=== PATIENT | female | born 1935 | race African-American/Black ===

== ENCOUNTER 2016-07-01 20:33 | Inpatient (IN) | payer MEDICARE, OTHER ==
[~2016-07-01] VITALS: Ht 162.6 cm; Wt 73.5 kg
[2016-07-01 20:49] LABS: BASOPHILS # (AUTO) 0.1 /CMM (0.0-0.2); BASOPHILS % (AUTO) 0.9 % (0.0-2.0); DIFF TOTAL % 100 %; EOSINOPHILS # (AUTO) 0.1 /CMM (0.0-0.7); EOSINOPHILS % (AUTO) 1.5 % (0.0-6.0); HEMATOCRIT 37 % (33-45); HEMOGLOBIN 12.2 g/dL (11.5-14.8); LYMPHOCYTES # (AUTO) 2.5 /CMM (0.8-4.8); LYMPHOCYTES % (AUTO) 40.5 % (20.0-44.0); MEAN CORPUSCULAR HEMOGLOBIN 30 PG (26.0-33.0); MEAN CORPUSCULAR HGB CONC 33 g/dl (31.0-36.0); MEAN CORPUSCULAR VOLUME 91 fL (82-100); MONOCYTES # (AUTO) 0.5 /CMM (0.1-1.30); MONOCYTES % (AUTO) 8.1 % (2.0-12.0); NEUTROPHILS # (AUTO) 2.9 /CMM (1.8-8.9); PLATELET COUNT (AUTO) 192 /CMM (150-450); RED BLOOD CELL COUNT(AUTO) 4.06 MIL/uL (4.0-5.2); WHITE BLOOD COUNT (AUTO) 6.1 K/uL (4.3-11.0)
[2016-07-01] MEDS ORDERED: HYDR12.5 PO (20:54)
[2016-07-01] MEDS ORDERED: METO25TA6 PO (20:54)
[2016-07-01] MEDS ORDERED: ALPR0.5T8 PO (20:54)
[2016-07-01] MEDS ORDERED: ASPI81TA44 PO (20:54)
[2016-07-01] MEDS ORDERED: HYDR-3652 PO (20:54)
[2016-07-01] MEDS ORDERED: ATOR80TA PO (20:54)
[2016-07-01] MEDS ORDERED: MECL25TA65 PO (20:54)
[2016-07-01] MEDS ORDERED: MAGN296S PO (20:54)
[2016-07-01 20:59] LABS: CALCIUM, SERUM 9.2 mg/dL (8.5-10.1); POTASSIUM 3.8 mmol/L (3.5-5.1)
[2016-07-01 21:03] LABS: INR 1.05 (0.87-1.13)
[2016-07-01 21:07] LABS: TROPONIN I 0.094 ng/mL (0.00-0.056)
[2016-07-01] MEDS ORDERED: ASPIRIN 325 MG TABLET ONE (21:12)
[2016-07-01] MEDS ORDERED: hydrALAZINE HCL IV 20 MG VIAL ONE (21:18)
[2016-07-01] MEDS ORDERED: hydrALAZINE HCL IV 20 MG VIAL IV ONE ×2 (21:30)
[2016-07-01] MEDS ORDERED: ASPIRIN 325 MG TABLET PO ONE (21:30)
[2016-07-01 22:30] VITALS: BP 169/89
[2016-07-01] MEDS ORDERED: ENOXAPARIN SODIUM 40 MG/0.4 ML DISP.SYRIN SQ SCH (22:30)
[2016-07-01] MEDS ORDERED: MAG HYDROX/AL HYDROX/SIMETH 30 ML UDC PO PRN (22:30)
[2016-07-01] MEDS ORDERED: ZOLPIDEM TARTRATE 5 MG TABLET PO PRN (22:30)
[2016-07-01] MEDS ORDERED: Z GUARD REMEDY 2 OZ OINT TP PRN (22:30)
[2016-07-01] MEDS ORDERED: ACETAMINOPHEN 325 MG TABLET PO PRN (22:30)
[2016-07-01] MEDS ORDERED: HYDROCODONE/APAP 5/325MG 1 EACH TABLET PO PRN (22:30)
[2016-07-01] MEDS ORDERED: ONDANSETRON HCL/PF 4 MG/2 ML VIAL IVP PRN (22:30)
[2016-07-01] MEDS ORDERED: MAGNESIUM HYDROXIDE 30 ML UDC PO PRN (22:30)
[2016-07-01 23:40] LABS: KETONES,URINE NEGATIVE (NEGATIVE); LEUKOCYTE ESTERASE ,URINE 2+ (NEGATIVE)
[2016-07-01 23:42] LABS: ADD UA MICROSCOPIC YES
[2016-07-01 23:46] LABS: ADD URINE CULTURE YES; RBC,URINE 0-2 /HPF (0-2)
[2016-07-01 23:47] LABS: MUCUS,URINE Rare /LPF (None Seen)
[2016-07-02] VITALS (9 sets, daily range): BP systolic 118–153; BP diastolic 70–79
[2016-07-02] MEDS ORDERED: ENOXAPARIN SODIUM 40 MG/0.4 ML DISP.SYRIN SQ ONE (00:47)
[2016-07-02 06:36] LABS: BASOPHILS % (AUTO) 0.4 % (0.0-2.0); DIFF TOTAL % 100 %; EOSINOPHILS # (AUTO) 0.1 /CMM (0.0-0.7); EOSINOPHILS % (AUTO) 1.6 % (0.0-6.0); HEMATOCRIT 39 % (33-45); HEMOGLOBIN 12.5 g/dL (11.5-14.8); LYMPHOCYTES # (AUTO) 1.9 /CMM (0.8-4.8); LYMPHOCYTES % (AUTO) 33.7 % (20.0-44.0); MEAN CORPUSCULAR HEMOGLOBIN 30 PG (26.0-33.0); MEAN CORPUSCULAR HGB CONC 32 g/dl (31.0-36.0); MEAN CORPUSCULAR VOLUME 93 fL (82-100); MONOCYTES # (AUTO) 0.5 /CMM (0.1-1.30); MONOCYTES % (AUTO) 9.4 % (2.0-12.0); NEUTROPHILS # (AUTO) 3.2 /CMM (1.8-8.9); NEUTROPHILS % (AUTO) 54.9 % (43.0-81.0); PLATELET COUNT (AUTO) 189 /CMM (150-450); RED BLOOD CELL COUNT(AUTO) 4.23 MIL/uL (4.0-5.2); WHITE BLOOD COUNT (AUTO) 5.8 K/uL (4.3-11.0)
[2016-07-02 06:57] LABS: CALCIUM, SERUM 9.5 mg/dL (8.5-10.1); CREATININE 0.8 mg/dL (0.6-1.3); PHOSPHORUS 3.4 mg/dL (2.5-4.9); POTASSIUM 3.7 mmol/L (3.5-5.1)
[2016-07-02] MEDS: ASPIRIN EC 81 MG TABLET.DR PO SCH (08:59)
[2016-07-02] MEDS: PANTOPRAZOLE 40 MG TABLET.DR PO SCH (08:59)
[2016-07-02] MEDS: METOPROLOL TARTRATE 25 MG TABLET PO SCH (09:00)
[2016-07-02] MEDS: hydrALAZINE HCL 50 MG TABLET PO SCH ×3 (09:55→17:38)
[2016-07-02] MEDS: ATORVASTATIN 40 MG TABLET PO SCH (09:55)
[2016-07-02] MEDS: ENOXAPARIN SODIUM 40 MG/0.4 ML DISP.SYRIN SQ SCH (10:01)
[2016-07-02] MEDS: NITROGLYCERIN 30 GM TUBE TP SCH ×2 (10:28→22:23)
[2016-07-03 08:00] VITALS: BP 140/86
[2016-07-03] MEDS: ASPIRIN EC 81 MG TABLET.DR PO SCH (08:34)
[2016-07-03] MEDS: HYDROCHLOROTHIAZIDE 25 MG TABLET PO SCH (08:35)
[2016-07-03] MEDS: hydrALAZINE HCL 50 MG TABLET PO SCH ×3 (08:36→17:51)
[2016-07-03] MEDS: ATORVASTATIN 40 MG TABLET PO SCH (08:36)
[2016-07-03] MEDS: METOPROLOL TARTRATE 25 MG TABLET PO SCH (08:36)
[2016-07-03] MEDS: PANTOPRAZOLE 40 MG TABLET.DR PO SCH (08:36)
[2016-07-03] MEDS: ENOXAPARIN SODIUM 40 MG/0.4 ML DISP.SYRIN SQ SCH (08:40)
[2016-07-03] MEDS: NITROGLYCERIN 30 GM TUBE TP SCH ×2 (09:34→21:10)
[2016-07-03 16:00] VITALS: BP 132/81
[2016-07-03 20:00] VITALS: BP 153/73
[2016-07-04 08:00] VITALS: BP 138/68
[2016-07-04] MEDS: HYDROCHLOROTHIAZIDE 25 MG TABLET PO SCH (08:12)
[2016-07-04] MEDS: hydrALAZINE HCL 50 MG TABLET PO SCH ×2 (08:13→13:00)
[2016-07-04] MEDS: PANTOPRAZOLE 40 MG TABLET.DR PO SCH (08:13)
[2016-07-04] MEDS: ATORVASTATIN 40 MG TABLET PO SCH (08:13)
[2016-07-04] MEDS: ENOXAPARIN SODIUM 40 MG/0.4 ML DISP.SYRIN SQ SCH (08:13)
[2016-07-04] MEDS: ASPIRIN EC 81 MG TABLET.DR PO SCH (08:13)
[2016-07-04] MEDS: METOPROLOL TARTRATE 25 MG TABLET PO SCH (08:14)
[2016-07-04] MEDS: NITROGLYCERIN 30 GM TUBE TP SCH (08:14)
[2016-07-04 13:00] VITALS: BP 126/71
== END 2016-07-04 15:57 | DRG 280 ==
LOC: ER 20:33 → TELE 21:43 → MED 07-02 09:34
PROVIDERS: ADMIT Nurse Practitioner Acute Care; ATTEND Nurse Practitioner Acute Care
DX: I21.4 Non-ST elevation (NSTEMI) myocardial infarction (principal); G93.41 Metabolic encephalopathy; E87.0 Hyperosmolality and hypernatremia; F03.90 Unspecified dementia, unspecified severity, without behavioral disturbance, psychotic disturbance, mood disturbance, and anxiety; M19.90 Unspecified osteoarthritis, unspecified site; I10 Essential (primary) hypertension; I25.10 Atherosclerotic heart disease of native coronary artery without angina pectoris
CPT/HCPCS: 36415; 71010-TC; 80048-TC; 80061-TC; 81000-TC; 83735-TC; 83880; 84100-TC; 84484-TC; 85025-TC; 85730-TC; 87081-TC; 87086-TC; 93307-TC; 97001-TC; A4606; J0360; J1650; Z7610

== ENCOUNTER 2017-10-14 20:13 | Emergency (ER) | payer MEDICARE, OTHER ==
[~2017-10-14] VITALS: Ht 165.1 cm; Wt 61.2 kg
[~2017-10-14 20:13] MED LIST: ALPR0.5T8 PO; ASPI81TA44 PO; ATOR80TA PO; HYDR-4303 PO; MAGN296S44 PO; MECL25TA65 PO
[2017-10-14 20:18] VITALS: BP 130/54
[2017-10-14] MEDS ORDERED: LIDOCAINE HCL/PF 1% 30 ML VIAL TP ONE (20:30)
[2017-10-14] MEDS ORDERED: LIDOCAINE HCL/PF 1% 30 ML SDV ONE (20:31)
--- NOTE | 2017-10-14 20:32 | NUR ---
I&D SETUP AT BEDSIDE.
--- NOTE | 2017-10-14 21:38 | NUR ---
CALLED LOW FOR TRANSPORT BACK TO [facility], ETA [id number], TRIP#[id number]
--- NOTE | 2017-10-14 22:00 | NUR ---
CALLED LOW TO CANCEL TRANSPORT
== END 2017-10-14 21:23 | disposition home or self-care (01) ==
LOC: ER 20:15
DX: L02.212 Cutaneous abscess of back [any part, except buttock and flank] (principal); F03.90 Unspecified dementia, unspecified severity, without behavioral disturbance, psychotic disturbance, mood disturbance, and anxiety; I10 Essential (primary) hypertension; I25.2 Old myocardial infarction; Z86.718 Personal history of other venous thrombosis and embolism; Z79.82 Long term (current) use of aspirin
CPT/HCPCS: A4606; A6402; A6407; J3490; Z7610

== ENCOUNTER 2017-10-17 19:03 | Emergency (ER) | payer MEDICARE, OTHER ==
[~2017-10-17] VITALS: Ht 162.6 cm; Wt 74.8 kg
[2017-10-17 19:09] VITALS: BP 104/78
== END 2017-10-17 19:47 | disposition home or self-care (01) ==
LOC: ER 19:08
DX: L02.212 Cutaneous abscess of back [any part, except buttock and flank] (principal); F03.90 Unspecified dementia, unspecified severity, without behavioral disturbance, psychotic disturbance, mood disturbance, and anxiety; I10 Essential (primary) hypertension; I25.10 Atherosclerotic heart disease of native coronary artery without angina pectoris; I25.2 Old myocardial infarction; R42 Dizziness and giddiness; Z79.82 Long term (current) use of aspirin
CPT/HCPCS: 99283; A4606; Z7610

== ENCOUNTER 2018-11-02 15:55 | Inpatient (IN) | payer MEDICARE, OTHER ==
[~2018-11-02] VITALS: Ht 162.6 cm; Wt 74.8 kg
--- NOTE | 2018-11-02 16:04 | NUR ---
PT BIBRA FROM SNF TO ER BED 11. PER REPORT, WORSENING BLE FOR THE PAST 2 WEEKS. PT IS CONFUSED UPON INITIAL ASSESSMENT. GOWNED AND PLACED ON MONITOR. [employer]SS WAREHOUSE SHIPPING SUPERVISOR. AWAITING SUSAND POLA.
[2018-11-02] MEDS ORDERED: HYDR-4077 PO (16:21)
[2018-11-02] MEDS ORDERED: BUSP5TAB3 PO (16:21)
[2018-11-02] MEDS ORDERED: DOCU-141 PO (16:21)
[2018-11-02] MEDS ORDERED: ASPI-1152 PO (16:21)
[2018-11-02] MEDS ORDERED: LISI40TA4 PO (16:21)
[2018-11-02] MEDS ORDERED: METO25TA3 PO (16:21)
[2018-11-02] MEDS ORDERED: VIT1CAPS44 PO (16:24)
--- NOTE | 2018-11-02 16:29 | NUR ---
DR HERRON AT BEDSIDE FOR EVAL.
--- NOTE | 2018-11-02 16:42 | NUR ---
RADIOLOGY AT BEDSIDE FOR CHEST XRAY.
[2018-11-02 16:56] LABS: BASOPHILS % (AUTO) 0.6 % (0.0-2.0); EOSINOPHILS % (AUTO) 3.5 % (0.0-6.0); HEMATOCRIT 35 % (33-45); HEMOGLOBIN 11.3 g/dL (11.5-14.8); LYMPHOCYTES # (AUTO) 1.8 /CMM (0.8-4.8); LYMPHOCYTES % (AUTO) 34.8 % (20.0-44.0); MEAN CORPUSCULAR HGB CONC 32 g/dl (31.0-36.0); MEAN CORPUSCULAR VOLUME 94 fL (82-100); MONOCYTES # (AUTO) 0.6 /CMM (0.1-1.30); MONOCYTES % (AUTO) 11.3 % (2.0-12.0); NEUTROPHILS # (AUTO) 2.5 /CMM (1.8-8.9); NEUTROPHILS % (AUTO) 49.8 % (43.0-81.0); PLATELET COUNT (AUTO) 215 /CMM (150-450); RED BLOOD CELL COUNT(AUTO) 3.75 MIL/uL (4.0-5.2); WHITE BLOOD COUNT (AUTO) 5.1 K/uL (4.3-11.0)
[2018-11-02 17:06] LABS: CALCIUM, SERUM 9.3 mg/dL (8.5-10.1); CARBON DIOXIDE 29 mmol/L (21-32); CHLORIDE 110 mmol/L (98-107); CREATININE 1.1 mg/dL (0.6-1.3); GLUCOSE 107 mg/dL (74-106); POTASSIUM 4.3 mmol/L (3.5-5.1); SODIUM SERUM 147 mmol/L (136-145); UREA NITROGEN, BLOOD 25 mg/dL (7-18)
[2018-11-02 17:19] LABS: ALANINE AMINOTRANSFERASE 30 U/L (12-78); ALBUMIN 3.1 g/dL (3.4-5.0); ALKALINE PHOSPHATASE 67 U/L (46-116); ASPARTATE AMINOTRANSFERASE 23 U/L (15-37); B-TYPE NATRIURETIC PEPTIDE 127 PG/ML (0-125); BILIRUBIN,DIRECT 0.1 mg/dL (0.0-0.2); BILIRUBIN,TOTAL 0.2 mg/dL (0.2-1.0); TOTAL PROTEIN, SERUM 6.3 g/dL (6.4-8.2)
[2018-11-02] MEDS ORDERED: ASPIRIN 325 MG TABLET ONE (17:29)
[2018-11-02] MEDS ORDERED: ASPIRIN 325 MG TABLET PO ONE (17:30)
--- NOTE | 2018-11-02 17:37 | NUR ---
SITTER AT BEDSIDE FOR SAFETY.
--- NOTE | 2018-11-02 18:58 | NUR ---
MOVE SHEET GIVEN TO THE FRONT OFFICE TO GET AUTH.
[2018-11-02] MEDS ORDERED: ONDANSETRON HCL/PF 4 MG/2 ML VIAL IVP PRN (19:00)
[2018-11-02] MEDS ORDERED: MAG HYDROX/AL HYDROX/SIMETH 30 ML UDC PO PRN (19:00)
[2018-11-02] MEDS ORDERED: ACETAMINOPHEN 325 MG TABLET PO PRN (19:00)
[2018-11-02] MEDS ORDERED: HYDROCODONE/APAP 5/325MG 1 EACH TABLET PO PRN (19:00)
[2018-11-02] MEDS ORDERED: MORPHINE SULFATE INJ 2 MG/ML DISP.SYRIN IV PRN (19:00)
[2018-11-02] MEDS ORDERED: MAGNESIUM HYDROXIDE 30 ML UDC PO PRN (19:00)
--- NOTE | 2018-11-02 19:19 | NUR ---
REPORT TO PHILIPPE IBANEZ RN FOR NIRANJAN.
--- NOTE | 2018-11-02 20:22 | NUR ---
REPORT GIVEN TO DYOLN FAJARDO FOR NIRANJAN.
--- NOTE | 2018-11-02 20:55 | NUR ---
LEADERSHIP DEVELOPMENT INSTRUCTOR NOTES PATIENT ARRIVED ON THE UNIT AT 2049 VIA GURNEY. DAUGHTER TAB ACCOMPANIED HER. ABLE TO GIVE ME INFORMATION ON HER MOTHER. FROM [facility]. NO SIGNS OF RESPIRATORY DISTRESS. DENIES SHORTNESS OF BREATH. SKIN IS INTACT. VITALS UPON ADMISSION ARE 140/82, PULSE 87, RESP 18, TEMP 97.7, O2 SAT 98%. SAFETY PRECAUTIONS IMPLEMENTED; CALL LIGHT WITHIN REACH, BED LOW, BED LOCKED, SIDE RAILS UP X2. PATIENT HAS SITTER, ANN, AT BEDSIDE.
[2018-11-02 21:00] VITALS: BP 140/82
--- NOTE | 2018-11-02 21:00 | NUR ---
RN NOTES ROJAS CATH WAS INSERTED IN THE ER.
[2018-11-03] VITALS: BP_SYST 147; BP_SYST 159; BP_DIAS 65; BP_DIAS 80
[2018-11-03 00:30] VITALS: BP 147/65
[2018-11-03 04:00] VITALS: BP 146/76
[2018-11-03 06:35] LABS: BASOPHILS % (AUTO) 0.4 % (0.0-2.0); EOSINOPHILS % (AUTO) 3.3 % (0.0-6.0); HEMATOCRIT 31 % (33-45); HEMOGLOBIN 10.3 g/dL (11.5-14.8); LYMPHOCYTES # (AUTO) 1.8 /CMM (0.8-4.8); LYMPHOCYTES % (AUTO) 35.6 % (20.0-44.0); MEAN CORPUSCULAR HGB CONC 33 g/dl (31.0-36.0); MEAN CORPUSCULAR VOLUME 93 fL (82-100); MONOCYTES # (AUTO) 0.5 /CMM (0.1-1.30); MONOCYTES % (AUTO) 10.2 % (2.0-12.0); NEUTROPHILS # (AUTO) 2.6 /CMM (1.8-8.9); NEUTROPHILS % (AUTO) 50.5 % (43.0-81.0); PLATELET COUNT (AUTO) 200 /CMM (150-450); RED BLOOD CELL COUNT(AUTO) 3.39 MIL/uL (4.0-5.2)
--- NOTE | 2018-11-03 06:42 | NUR ---
RN CLOSING NOTES PATIENT IS CURRENTLY ASLEEP, COMFORTABLE IN BED. SITTER AT BEDSIDE. NO SIGNS OF RESPIRATORY DISTRESS. NO SIGNS OF SOB. NO COMPLAINTS OF GENERAL PAIN, CHEST PAIN, OR N/V THROUGHOUT MY SHIFT. PATIENT IS STABLE. ALL NEEDS MET. ROJAS CATH DRAINING WELL. NO COMPLAINTS THROUGHOUT THE SHIFT. SAFETY PRECAUTIONS IMPLEMENTED; CALL LIGHT WITHIN REACH, BED LOW, BED LOCKED, SIDE RAILS UP X2. WILL ENDORSE TO AM SHIFT FOR CONTINUITY OF CARE.
[2018-11-03 06:57] LABS: CHOLESTEROL 108 mg/dL (<200); HDL CHOLESTEROL 64 mg/dL (40-60); LDL 39 mg/dL (0-99); THYROID STIMULATING HORMONE 1.168 uIU/mL (0.358-3.74); TRIGLYCERIDES 33 mg/dL (30-150)
[2018-11-03 07:02] LABS: CALCIUM, SERUM 8.9 mg/dL (8.5-10.1); CARBON DIOXIDE 28 mmol/L (21-32); CHLORIDE 111 mmol/L (98-107); CREATININE 0.8 mg/dL (0.6-1.3); GLUCOSE 88 mg/dL (74-106); MAGNESIUM 1.7 mg/dL (1.8-2.4); PHOSPHORUS 3.3 mg/dL (2.5-4.9); POTASSIUM 3.8 mmol/L (3.5-5.1); SODIUM SERUM 146 mmol/L (136-145); UREA NITROGEN, BLOOD 20 mg/dL (7-18)
--- NOTE | 2018-11-03 07:28 | NUR ---
SPRINKLER IRRIGATION EQUIPMENT MECHANIC NOTES PLACED CALL TO ER AND SPOKE WITH PHILIPPE RN, VERIFIED THAT ROJAS CATHETER WAS INSERTED IN ER. WILL CONTINUE TO MONITOR
--- NOTE | 2018-11-03 07:50 | NUR ---
LOAN OFFICER OPENING NOTES RECEIVED PATIENT IN BED RESTING COMFORTABLY. PATIENT ALERT, ORIENTED X1. ON IV ACCESS ON LEFT AC #20, SL. INTACT AND PATENT. ON ROJAS CATHETER, INTACT AND PATENT. ON TELE MONITORING WITH SR, HR ON 60'S. NO S/S OF CARDIAC DISTRESS NOTED AT THIS TIME. SAFETY MEASURES IN PLACE, BED IN LOW LOCKED POSITION, CALL LIGHT WITHIN REACH, WILL CONTINUE TO MONITOR ACCORDINGLY.
[2018-11-03 08:00] VITALS: BP_SYST 144; BP_SYST 164; BP_DIAS 68; BP_DIAS 78
[2018-11-03] MEDS: PANTOPRAZOLE 40 MG TABLET.DR PO SCH (09:06)
[2018-11-03] MEDS: ASPIRIN EC 81 MG TABLET.DR PO SCH (09:07)
[2018-11-03] MEDS: busPIRone 5 MG TABLET PO SCH ×2 (09:07→17:30)
[2018-11-03] MEDS: METOPROLOL SUCCINATE 25 MG TAB.SR.24H PO SCH ×2 (09:08→17:00)
[2018-11-03] MEDS: LISINOPRIL (20MG) 20 MG TABLET PO SCH (09:09)
[2018-11-03] MEDS: DOCUSATE SODIUM 100 MG CAPSULE PO SCH ×2 (09:09→17:30)
--- NOTE | 2018-11-03 09:45 | NUR ---
MS RN NOTES PATIENT SEEN AND EXAMINED BY DR GARCIA, AWARE OF TROPONIN LEVEL. PER DR GARCIA, OK TO AMBULATE PATIENT AND TO INCREASE AMBULATION IF POSSIBLE. PATIENT WITH ORDER FOR PT EVAL. PATIENT MADE AWARE AND VERBALIZED UNDERSTANDING. AVINASH SANDOVAL DNP PRESENT AT UNIT ALSO MADE AWARE.
--- NOTE | 2018-11-03 09:46 | NUR ---
MS RN NOTES PATIENT WITH NEW ORDER FROM AVINASH SANDOVAL DNP TO DC ROJAS CATHETER. ORDER NOTED AND CARRIED OUT. WILL CONTINUE TO MONITOR
--- NOTE | 2018-11-03 10:00 | NUR ---
MS RN NOTES REMOVED ROJAS CATHETER, PATIENT TOLERATED WELL. NO COMPLAIN OF PAIN OR DISCOMFORT AT THIS TIME. WILL CONTINUE TO MONITOR.
[2018-11-03] MEDS: DILTIAZEM HCL CD 240 MG PO SCH (10:07)
[2018-11-03] MEDS: Magnesium 1GM/D5W 100ML PREMIX 100 ML IV SCH ×2 (10:08→15:47)
[2018-11-03 16:00] VITALS: BP_SYST 141; BP_SYST 143; BP_DIAS 67; BP_DIAS 71
--- NOTE | 2018-11-03 19:14 | NUR ---
MS RN NOTES PATIENT RESTING INSIDE ROOM. AWAKE, ALERT AND ORIENTED 1-2, VERBALLY RESPONSIVE AND RESPONDS TO VERBAL AND TACTILE STIMULI. PATIENT REORIENTED NEEDED. NO ACUTE DISTRESS. DENIES ANY PAIN OR DISCOMFORT. NO CHANGES IN LOC NOTED AT THIS TIME. PATIENT KEPT CLEAN, DRY AND COMFORTABLE. PROVIDED WITH CALM, SAFE, HAZARD-FREE ENVIRONMENT. WILL ENDORSE TO INCOMING SHIFT FOR NIRANJAN. BED LOCKED AND IN LOW POSITION. BILATERAL UPPER SIDE RAILS UP AND LOCKED. CALL LIGHT WITHIN EASY REACH
--- NOTE | 2018-11-03 19:46 | NUR ---
RN OPENING NOTES PATIENT IS AWAKE, RESTING IN BED COMFORTABLY. A/O X 1-2. RESPONDS TO VOICE AND TACTILE STIMULI. SITTER AT BEDSIDE FOR SAFETY. NO SIGNS OF RESPIRATORY DISTRESS. NO SIGNS OF SOB AT THIS TIME. NO SIGNS OF DISCOMFORT OR PAIN AT THIS TIME. SAFETY PRECAUTIONS IMPLEMENTED; CALL LIGHT WITHIN REACH, BED LOW, BED LOCKED, SIDE RAILS UP X2. WILL CONTINUE TO MONITOR PATIENT.
[2018-11-03 20:00] VITALS: BP 142/75
--- NOTE | 2018-11-04 06:44 | NUR ---
RN CLOSING NOTES PATIENT RESTING COMFORTABLY IN BED. A/O X 1-2. RESPONDS TO VERBAL AND TACTILE STIMULI, VERBAL RESPONSIVE. PATIENT WAS REORIENTED PRN. NO SIGNS OF RESPIRATORY DISTRESS. NO SIGNS OF SOB. DENIES PAIN OR DISCOMFORT. NO CHANGES IN LEVEL OF CONSCIOUSNESS AT THIS TIME. PATIENT KEPT CLEAN, DRY AND COMFORTABLE. PATIENT TURNED Q2H. PATIENT WAS KEPT SAFE. SAFETY PRECAUTIONS IMPLEMENTED; CALL LIGHT WITHIN REACH, BED LOW, BED LOCKED, SIDE RAILS UP. WILL ENDORSE TO AM RN FOR CONTINUITY OF CARE.
--- NOTE | 2018-11-04 07:18 | NUR ---
MS RN NOTES PATIENT RECEIVED RESTING INSIDE ROOM. AWAKE, ALERT AND ORIENTED X 1, VERBALLY RESPONSIVE AND RESPONDS TO VERBAL AND TACTILE STIMULI. BREATHING EVEN AND UNLABORED. NO ACUTE DISTRESS AT THIS TIME. SITTER AT BEDSIDE. WILL CONTINUE TO MONITOR. BED LOCKED AND IN LOW POSITION. BILATERAL UPPER SIDE RAILS UP AND LOCKED. CALL LIGHT WITHIN EASY REACH
[2018-11-04] MEDS: PANTOPRAZOLE 40 MG TABLET.DR PO SCH (07:29)
[2018-11-04] MEDS: DOCUSATE SODIUM 100 MG CAPSULE PO SCH (08:12)
[2018-11-04] MEDS: ASPIRIN EC 81 MG TABLET.DR PO SCH (08:12)
[2018-11-04] MEDS: busPIRone 5 MG TABLET PO SCH (08:13)
[2018-11-04] MEDS: DILTIAZEM HCL CD 240 MG PO SCH (08:18)
[2018-11-04 08:19] VITALS: BP 148/78
[2018-11-04] MEDS: METOPROLOL SUCCINATE 25 MG TAB.SR.24H PO SCH (08:19)
[2018-11-04] MEDS: LISINOPRIL (20MG) 20 MG TABLET PO SCH (08:19)
[2018-11-04 11:34] LABS: IRON, SERUM 47 ug/dl (50-175); TOTAL IRON BINDING CAPACITY 218 ug/dl (250-450)
[2018-11-04 11:37] LABS: FERRITIN 43 ng/mL (8-388)
--- NOTE | 2018-11-04 14:50 | NUR ---
MS RN NOTES PLACED CALL TO [facility] ([phone]) AND SPOKE WITH JONATAN, MADE AWARE THAT PATIENT IS COMING BACK TO [facility] AND VERBALIZED UNDERSTANDING
--- NOTE | 2018-11-04 14:56 | NUR ---
MS RN NOTES PLACED CALL TO DAUGHTER TAB ([phone]) AND MADE AWARE OF PATIENT DISCHARGE AND VERBALIZED UNDERSTANDING
--- NOTE | 2018-11-04 15:25 | NUR ---
MS RN NOTES PATIENT FOR DISCHARGE TODAY, TO DISCHARGE TO [facility]. DISCHARGE INSTRUCTIONS AND EDUCATION PROVIDED.
--- NOTE | 2018-11-04 15:30 | NUR ---
MUSIC HISTORIAN NOTES PATIENT WAS DISCHARGED IN STABLE CONDITION. A/O X 1. V/S TAKEN, STABLE AND RECORDED. PATIENT'S IV ACCESS REMOVED AND APPLIED PRESSURE DRESSING. SKIN IS INTACT. NAME ARM BAND REMOVED. ALL BELONGINGS CHECKED AND SIGNED. HEALTH TEACHING /DISCHARGED INSTRUCTIONS GIVEN. PATIENT LEFT UNIT VIA GURNEY WITH 2 STAFF FROM [facility] AT 1530 WITH NO ACUTE SIGNS OF DISTRESS.
== END 2018-11-04 15:30 | DRG 280 ==
LOC: ER 16:00 → TELE 20:28 → MED 11-03 09:50
PROVIDERS: ADMIT Nurse Practitioner Acute Care; ATTEND Nurse Practitioner Acute Care
DX: I21.A1 Myocardial infarction type 2 (principal); G93.41 Metabolic encephalopathy; E87.0 Hyperosmolality and hypernatremia; E44.0 Moderate protein-calorie malnutrition; I25.10 Atherosclerotic heart disease of native coronary artery without angina pectoris; I10 Essential (primary) hypertension; I25.2 Old myocardial infarction; Z96.651 Presence of right artificial knee joint; Z86.718 Personal history of other venous thrombosis and embolism; M19.90 Unspecified osteoarthritis, unspecified site; E78.5 Hyperlipidemia, unspecified; Z79.82 Long term (current) use of aspirin; Z79.899 Other long term (current) drug therapy; I89.0 Lymphedema, not elsewhere classified; I87.2 Venous insufficiency (chronic) (peripheral); E66.9 Obesity, unspecified; F03.90 Unspecified dementia, unspecified severity, without behavioral disturbance, psychotic disturbance, mood disturbance, and anxiety; Z68.28 Body mass index [BMI] 28.0-28.9, adult; R79.89 Other specified abnormal findings of blood chemistry; R60.9 Edema, unspecified; T46.5X5A Adverse effect of other antihypertensive drugs, initial encounter; Y92.099 Unspecified place in other non-institutional residence as the place of occurrence of the external cause
CPT/HCPCS: 36415; 71045-TC; 80048-TC; 80061-TC; 80076-TC; 82728-TC; 83540-TC; 83735-TC; 83880; 84100-TC; 84443-TC; 84484-TC; 85025-TC; 85730-TC; 93307-TC; 93970-TC; 97116-TC; 97530-TC; G0378; J3475; J7030